=== PATIENT | female | born 1960 | race Caucasian/White ===

== ENCOUNTER 2017-06-19 10:29 | Emergency (ER) | payer MEDICAID ==
[~2017-06-19] VITALS: Ht 149.9 cm; Wt 55.8 kg
[2017-06-19 10:31] VITALS: BP 116/67
--- NOTE | 2017-06-19 10:32 | NUR ---
PATIENT TAKEN TO ER BED 2 VIA EMS
--- NOTE | 2017-06-19 10:40 | NUR ---
57f biba with c/o 03/03 constant "sharp" non radiating right flank pain x this am. Pt also reports of n/v with dysuria. Pt reports of chills but denies fevers. Pt restlness and guarding. Pt is aox4 with steady gait. RR are even and unlabored. Pt positioned to comfort, bed down. Awaiting er md powell. All needs met at this time. NAD. Will continue to monitor.
--- NOTE | 2017-06-19 10:53 | NUR ---
DR. SINGH BEDSIDE EVALUATING PATIENT
[2017-06-19] MEDS ORDERED: NACL 0.9% 1,000 ML IV SCH (10:56)
[2017-06-19] MEDS ORDERED: KETOROLAC 30 MG/ML VIAL IVP ONE (11:00)
[2017-06-19] MEDS ORDERED: ONDANSETRON 4 MG/2 ML VIAL IVP ONE (11:00)
--- NOTE | 2017-06-19 11:10 | NUR ---
pt to ct via [facility] accompanied by transporter radiology
[2017-06-19 11:21] LABS: HEMATOCRIT 41.2 % (36-48); HEMOGLOBIN 13.1 g/dL (12.0-16.0); MEAN CORPUSCULAR HEMOGLOBIN 26 pg (27-31); MEAN CORPUSCULAR HGB CONC 32 g/dL (33-37); MEAN CORPUSCULAR VOLUME 82 fL (80-94); PLATELET COUNT (AUTO) 394 K/uL (140-450); RED BLOOD CELL COUNT(AUTO) 5.02 MIL/uL (4.20-5.40); RED CELL DISTRIBUTION WIDTH 13.1 % (11.6-13.7); WHITE BLOOD COUNT (AUTO) 16.5 K/uL (4.8-10.8)
--- NOTE | 2017-06-19 11:22 | NUR ---
pt returned from ct via gurney accompanied by chief radiology
[2017-06-19 11:27] LABS: APPEARANCE,URINE HAZY (CLEAR); BILIRUBIN,URINE NEGATIVE (NEGATIVE); BLOOD, URINE 2+ (NEGATIVE); COLOR,URINE YELLOW (YELLOW); LEUKOCYTE ESTERASE ,URINE NEGATIVE (NEGATIVE); NITRITE, URINE NEGATIVE (NEGATIVE); UGLUCOSE NEGATIVE (NEGATIVE)
[2017-06-19 11:40] LABS: ALBUMIN 4.3 g/dL (3.4-5.0); ANION GAP 15.3 (8-16); CARBON DIOXIDE 25.2 mmol/L (21-32); CREATININE 0.9 mg/dL (0.6-1.3); POTASSIUM 3.5 mmol/L (3.5-5.1); TOTAL BILIRUBIN 0.3 mg/dL (0.0-1.0)
[2017-06-19 11:41] LABS: RBC,URINE 3-10 (FEW) /HPF (0-5); WBC,URINE 0-5 (RARE) /HPF (0-5)
[2017-06-19] MEDS ORDERED: MORPHINE SULFATE 4 MG/ML SYR IVP ONE (11:45)
[2017-06-19 11:48] LABS: LYMPHOCYTES % (MANUAL) 9 % (20-46); MONOCYTES % (MANUAL) 3 % (5-12)
--- NOTE | 2017-06-19 12:17 | NUR ---
Patient discharged with v/s stable. Written and verbal after care instructions given and explained. Patient alert, oriented and verbalized understanding of instructions. Ambulatory with to car. All questions addressed prior to discharge. ID band removed. Patient advised to follow up with PMD. Rx of Flomax, Motrin, and [place] given. Patient educated on indication of medication including possible reaction and side effects. Opportunity to ask questions provided and answered.
[2017-06-19 12:18] VITALS: BP 111/73
== END 2017-06-19 12:17 | disposition home or self-care (01) ==
LOC: MED 10:29
DX: N20.0 Calculus of kidney (principal)
CPT/HCPCS: 36415; 74176; 80053; 81001; 81025; 83690; 85025; 96361; 96374; 96375; 99285; J1885; J2270; J2405; J7030